=== PATIENT | male | born 1950 | race Caucasian/White ===

== ENCOUNTER → 2020-11-15 07:12 | Outpatient (CLI) | payer MEDICARE, OTHER, SELFPAY ==
--- NOTE | ~2020-11-15 | XR_ITS ---
EXAMINATION: XR wrist RT 2V DATE: 11/15/2020 08:21 INDICATION: Rheumatoid arthritis at multiple sites without rheumatoid factor. TECHNIQUE: 2 views of right wrist were obtained. COMPARISON: None. FINDINGS: Bone alignment is normal. No fracture. There is mild osteoarthritis of distal radioulnar salomon int and the radiocarpal joints and triscaphe joint. There is severe osteoarthritis of lunate-capitate joint with subchondral cyst in lunate. There is moderate osteoarthritis of first carpometacarpal lucas nt. There is mild to moderate osteoarthritis of all the metacarpophalangeal joints. IMPRESSION: 1. Polyarticular osteoarthritis. No evidence of inflammatory arthropathy such as rheumatoid arthritis . Reviewed, dictated and finalized at location A. SAWING MACHINE OPERATOR IMPRESSION: 1. Polyarticular osteoarthritis. No evidence of inflammatory arthropathy such a s rheumatoid arthritis.
--- NOTE | ~2020-11-15 | XR_ITS ---
EXAMINATION: XR hand LT 2V DATE: 11/15/2020 08:21 INDICATION: Rheumatoid arthritis of multiple sites without rheumatoid factor. TECHNIQUE: 2 views of left hand were obtained. COMPARISON: None. FINDINGS: Bone alignment is normal. No fracture. There is mild osteoarthritis of distal radioulnar salomon int and triscaphe joint. There is severe osteoarthritis of lunate-capitate joint and moderate osteoar thritis of first carpometacarpal joint. There is moderate osteoarthritis of second and third metacarp ophalangeal joints and mild osteoarthritis of first metacarpophalangeal joint. There is mild osteoart hritis of first interphalangeal joint and second-fourth proximal and distal interphalangeal joints. T here are loose bodies palmar to the carpus on the lateral view. IMPRESSION: 1. Polyarticular osteoarthritis. No evidence of inflammatory arthropathy such as rheumatoid arthritis . Reviewed, dictated and finalized at location A. OR CIRCULAR GLASS CUTTER IMPRESSION: 1. Polyarticular osteoarthritis. No evidence of inflammatory arthropathy such a s rheumatoid arthritis.
--- NOTE | ~2020-11-15 | MR_ITS ---
EXAMINATION: MR wrist RT wo con DATE: 11/15/2020 08:02 INDICATION: Rheumatoid arthritis of multiple sites without rheumatoid factor. TECHNIQUE: Magnetic resonance imaging (MRI) of the wrist was performed without intravenous contrast. Sequences performed include coronal T1-weighted FSE, coronal PD-weighted FS FSE, axial PD-weighted FS FSE, axial PD-weighted FSE, sagittal PD-weighted FSE, and sagittal PD-weighted FS FSE. COMPARISON: Right wrist radiographs 11/15/2020 FINDINGS: Intrinsic ligaments: There are partial tears of scapholunate ligament and lunotriquetral ligament. Triangular fibrocartilage complex (TFCC): There is a full-thickness tear of triangular fibrocartilage. Extensor wrist: The extensor tendons are normal. There is mild tenosynovitis of extensor carpi ulnaris. Flexor wrist: The flexor tendons are normal. Median nerve demonstrates increased PD-weighted signal intensity. Guyon's canal: Ulnar nerve is normal. Bones/other: There is palmar tilt of lunate, consistent with volar intercalated segmental instability (VISI). Ther e is full-thickness cartilage loss of lunate-capitate joint with 10 mm subchondral cyst in lunate and edema-like marrow signal intensity in lunate. There is full-thickness cartilage loss of first carpom etacarpal joint with small subchondral cysts, osteophytes, and mild subchondral edema-like signal int ensity. There is partial-thickness cartilage loss of radioscaphoid joint and triscaphe joint with sub chondral edema-like marrow signal intensity. Lunate is type II. There is subchondral edema-like marro w signal intensity in proximal hamate. There is a 10 mm cyst in proximal second metacarpal, likely a subchondral cyst. There is edema-like marrow signal intensity in the ulnar styloid. There is a 7 mm m ultiloculated ganglion cyst adjacent to ulnar styloid. There is a 9 mm multiloculated ganglion cyst a djacent to first carpometacarpal joint. There is a skin marker dorsal to the lunate and distal radius . IMPRESSION: 1. Polyarticular osteoarthritis. No evidence of inflammatory arthropathy such as rheumatoid arthritis . 2. Volar intercalated segmental instability (VISI). 3. Partial tears of scapholunate ligament and lunotriquetral ligament. 4. Full-thickness tear of triangular fibrocartilage. 5. Increased T2-weighted signal intensity in median nerve, consistent with neuropathy. 6. Ganglion cysts adjacent to ulnar styloid and first carpometacarpal joint. Reviewed, dictated and finalized at location A. N DRIVER SALESPERSON IMPRESSION: 1. Polyarticular osteoarthritis. No evidence of inflammatory arthropathy such a s rheumatoid arthritis. 2. Volar intercalated segmental instability (VISI). 3. Partial tears of scapholunate ligament and lunotriquetral ligament. 4. Full-thickness tear of triangular fibrocartilage. 5. Increased T2-weighted signal intensity in median nerve, consistent with neur opathy. 6. Ganglion cysts adjacent to ulnar styloid and first carpometacarpal joint.
--- NOTE | ~2020-11-15 | XR_ITS ---
EXAMINATION: XR hand RT 2V DATE: 11/15/2020 08:21 INDICATION: Rheumatoid arthritis of multiple sites without rheumatoid factor. TECHNIQUE: 2 views of right hand were obtained. COMPARISON: None. FINDINGS: Bone alignment is normal. No fracture. There is mild osteoarthritis of distal radioulnar salomon int, the radiocarpal joints, and triscaphe joint. There is severe osteoarthritis of lunate-capitate j oint with subchondral cyst in lunate. There is moderate osteoarthritis of first carpometacarpal joint . There is moderate osteoarthritis of second and third metacarpophalangeal joints and mild osteoarthr itis of first, fourth, and fifth metacarpophalangeal joints. There is moderate osteoarthritis of se[place] distal interphalangeal joint and mild osteoarthritis of third and fourth proximal and distal inter phalangeal joints and fifth distal interphalangeal joint. IMPRESSION: 1. Polyarticular osteoarthritis. No evidence of inflammatory arthropathy such as rheumatoid arthritis . Reviewed, dictated and finalized at location A. O PHOTOGRAPHER IMPRESSION: 1. Polyarticular osteoarthritis. No evidence of inflammatory arthropathy such a s rheumatoid arthritis.
== END ==
DX: M06.09 Rheumatoid arthritis without rheumatoid factor, multiple sites (principal); M25.531 Pain in right wrist; M21.831 Other specified acquired deformities of right forearm; S63.591A Other specified sprain of right wrist, initial encounter; M67.431 Ganglion, right wrist; M19.042 Primary osteoarthritis, left hand
CPT/HCPCS: 73100; 73120; 73221

== ENCOUNTER → 2021-03-17 00:54 | Outpatient (CLI) | payer MEDICARE, OTHER, SELFPAY ==
[2021-03-17 23:32] LABS: SARS-CoV-2 RNA PCR Negative
== END ==
PROVIDERS: PCP Nurse Practitioner Family; Visit Provider Internal Medicine Gastroenterology
DX: Z01.812 Encounter for preprocedural laboratory examination (principal); Z20.822 Contact with and (suspected) exposure to COVID-19
CPT/HCPCS: C9803; U0003; U0005

== ENCOUNTER 2021-03-20 01:42 | Day surgery (SDC) | payer MEDICARE, OTHER, SELFPAY ==
[2021-03-06 15:03] VITALS: BMI 25.4
[2021-03-20 06:25] VITALS: BP 171/76; PULSE 71; RESP 16; TEMP 36.6; O2SAT 99; BMI 25.1
[2021-03-20] MEDS: LACTATED RINGERS 1,000 ML 150 ML IV CONT (06:37)
--- NOTE | 2021-03-20 06:55 | WPDANESEPPF ---
Anes - Initial Pre Proc Eval Procedure: Operation Date: 03/20/21 07:30 Proposed Procedures p Screening Colonoscopy - Yousuf Oscar MD Date/Time: 03/20/21 06:55 Surgeon: Yousuf Oscar MD Pre Op Diagnosis: neoplasm screening Patient Data Age: 70 Gender: M Height: 1.83 m Weight: 84 kg Last Vital Signs Temp 36.6 C 03/20/21 06:25 Pulse 71 03/20/21 06:25 Resp 16 03/20/21 06:25 BP 171/76 H 03/20/21 06:25 Pulse Ox 99 03/20/21 06:25 Allergies Allergy/AdvReac Type Severity Reaction Status Date / Time No Known Allergies Allergy Verified 03/20/21 06:23 Home Medications Medication Instructions Recorded Confirmed Type atorvastatin 10 mg PO DAILY 03/06/21 03/20/21 History folic acid 1 mg PO DAILY 03/06/21 03/20/21 History losartan 25 mg PO DAILY 03/06/21 03/20/21 History methotrexate sodium 2.5 mg PO DAILY 03/06/21 03/20/21 History nebivolol [Bystolic] 10 mg PO DAILY 03/06/21 03/20/21 History sodium bicarbonate 650 mg PO BID 03/06/21 03/20/21 History Patient hx anesthesia problems: none Family hx anesthesia problems: none [facility] Past Medical History Medical History (Updated 03/19/21 @ 08:29 by Roscoe Juarez DO) Hypertension Irregular heart beat Social History Social History Smoking packs per day: 1.5 Smoking cigarettes per day: 30.0 Years smoked: 15 Smoking pack-years: 22.50 Smoking status: Former smoker Tobacco type: cigarettes Alcohol intake: current Drinks per week: 28 Alcohol use details: BEER Substance use: never Substance use type: does not use Living arrangements: with family Spiritual care concerns: No Anes - Eval Final PreProcedure Day of Procedure 03/20/21 06:55 Patient weight: overweight Heart: regular rate and rhythm Lungs: clear to auscultation and normal air movement Airway: Mallampati scale class II Neurological: alert and oriented Last oral intake: >/= 8 hours ASA classification: III Emergent: no Anesthetic plan: proceed Anesthesia type and monitoring: general GIVS and standard monitoring Informed Consent: The patient's anesthetic plan and its attendant risks and benefits were discussed with the patient/family/POA. Questions were solicited and answers provided to the satisfaction of the patient/family/POA.
--- NOTE | 2021-03-20 06:58 | P.HP_ITS ---
History of Present Illness History of Present Illness Consent: Risks, benefits, and alternatives have been discussed and questions answered. Patient agrees to proceed with procedure. Chief complaint: neoplasm screening Narrative: Gary Doyle Jr. is a 70 year old male Referred for colon cancer screening Review of Systems Review of Systems: All systems reviewed & are unremarkable except as noted in HPI and below Musculoskeletal: Comments: he is treated for rheumatoid arthritis [facility] Past Medical History Medical History Hypertension Irregular heart beat Social History Social History Smoking packs per day: 1.5 Smoking cigarettes per day: 30.0 Years smoked: 15 Smoking pack-years: 22.50 Smoking status: Former smoker Tobacco type: cigarettes Alcohol intake: current Drinks per week: 28 Alcohol use details: BEER Substance use: never Substance use type: does not use Living arrangements: with family Spiritual care concerns: No Meds Home Medications and Allergies Home Medications Medication Instructions Recorded Confirmed Type atorvastatin 10 mg PO DAILY 03/06/21 03/20/21 History folic acid 1 mg PO DAILY 03/06/21 03/20/21 History losartan 25 mg PO DAILY 03/06/21 03/20/21 History methotrexate sodium 2.5 mg PO DAILY 03/06/21 03/20/21 History nebivolol [Bystolic] 10 mg PO DAILY 03/06/21 03/20/21 History sodium bicarbonate 650 mg PO BID 03/06/21 03/20/21 History Allergies Allergy/AdvReac Type Severity Reaction Status Date / Time No Known Allergies Allergy Verified 03/20/21 06:23 Vital Signs Vital Signs - 24 hr 03/20/21 06:25 Temperature 36.6 C Pulse Rate 71 Respiratory Rate 16 Blood Pressure 171/76 H Pulse Oximetry 99 Exam Resp: Auscultation: clear to auscultation bilaterally Cardio: Rate: regular rate Rhythm: regular rhythm GI: GI Palp: Yes Soft to palpation and No Tenderness to palpation present (GI) Assessment and Plan Assessment and plan (1) Colon cancer screening: Code(s): Z12.11 - Encounter for screening for malignant neoplasm of colon Status: Acute Assessment and Plan: Colonoscopy with possible biopsy or polypectomy or cautery or injection of substances.
[2021-03-20 07:42] VITALS: BP 119/72; PULSE 69; RESP 18; O2SAT 99
[2021-03-20 07:52] VITALS: BP 153/88; PULSE 64; RESP 13; O2SAT 100
[2021-03-20 08:02] VITALS: BP 157/97; PULSE 70; RESP 19; O2SAT 100
== END 2021-03-20 08:08 | disposition home or self-care (01) ==
PROVIDERS: PCP Nurse Practitioner Family; Visit Provider Internal Medicine Gastroenterology
PROC: 0DJD8ZZ Inspection of Lower Intestinal Tract, Via Natural or Artificial Opening Endoscopic (ICD-10-PCS; CPT 45378; principal; 2021-03-20 07:30)
DX: Z12.11 Encounter for screening for malignant neoplasm of colon (principal); K64.8 Other hemorrhoids; K57.30 Diverticulosis of large intestine without perforation or abscess without bleeding; Z86.010 Personal history of colon polyps; I10 Essential (primary) hypertension; Z87.891 Personal history of nicotine dependence
CPT/HCPCS: G0105; J2704; J7120

== ENCOUNTER 2022-09-04 10:31 | Day surgery (SDC) | payer MEDICARE, OTHER, SELFPAY ==
[2022-08-27 14:35] VITALS: BMI 26.3
[2022-09-04 10:55] VITALS: BP 185/83; PULSE 65; RESP 20; TEMP 36.8; O2SAT 98
[2022-09-04] MEDS: TETRACAINE HCL 0.5% OPHTH SOLN 4 ML BTL 1 DROP AFFCTD EYE ×3 (11:19→11:29)
[2022-09-04] MEDS: OFLOXACIN 0.3% OPHTH SOLN 5 ML BTL 1 DROP AFFCTD EYE (11:19)
--- NOTE | 2022-09-04 11:35 | WPDANESEPPF ---
Anes - Initial Pre Proc Eval Procedure: Operation Date: 09/04/22 11:30 Proposed Procedures p Cataract Extraction with Lens Implant-Left Eye - Lennox Carney MD Date/Time: 09/04/22 11:35 Surgeon: Lennox Carney MD Pre Op Diagnosis: Cataract Left Eye Patient Data Age: 71 Gender: M Height: 1.83 m Weight: 88 kg Last Vital Signs Temp 36.8 C 09/04/22 10:55 Pulse 65 09/04/22 10:55 Resp 20 09/04/22 10:55 BP 185/83 H 09/04/22 10:55 Pulse Ox 98 09/04/22 10:55 O2 Del Method Room Air 09/04/22 10:55 Allergies Allergy/AdvReac Type Severity Reaction Status Date / Time No Known Allergies Allergy Verified 09/04/22 11:01 Home Medications Medication Instructions Recorded Confirmed Type atorvastatin 10 mg tablet 10 mg PO DAILY 03/06/21 09/04/22 History folic acid 1 mg tablet 2 mg PO DAILY 03/06/21 09/04/22 History losartan 25 mg tablet 25 mg PO DAILY 03/06/21 09/04/22 History methotrexate sodium 2.5 mg tablet 20 mg PO WEEKLY 03/06/21 09/04/22 History sodium bicarbonate 650 mg tablet 1,300 mg PO BID 03/06/21 09/04/22 History diltiazem HCl 120 mg capsule,24 120 mg PO DAILY 08/27/22 09/04/22 History hr,extended release metoprolol succinate 100 mg 100 mg PO DAILY 08/27/22 09/04/22 History tablet,extended release 24 hr Patient hx anesthesia problems: none Family hx anesthesia problems: none Results Review: All pre-operative results and documents have been reviewed as part of the pre-operative evaluation. [facility] Past Medical History Medical History Hyperlipidemia Hypertension Irregular heart beat Rheumatoid arthritis Social History Social History Smoking packs per day: 1.5 Smoking cigarettes per day: 30.0 Years smoked: 15 Smoking pack-years: 22.50 Smoking status: Former smoker Tobacco type: cigarettes Alcohol intake: current Drinks per week: 28 Alcohol use details: BEER Substance use: never Substance use type: does not use Living arrangements: with family Spiritual care concerns: No Anes - Eval Final PreProcedure Day of Procedure 09/04/22 11:35 Patient weight: overweight Heart: regular rate and rhythm Lungs: clear to auscultation Airway: Mallampati scale class II Neurological: alert and oriented Last oral intake: >/= 8 hours ASA classification: III Emergent: no Anesthetic plan: proceed Anesthesia type and monitoring: monitored anesthesia care and standard monitoring Results Review: All pre-operative results and documents have been reviewed as part of the pre-operative evaluation. Informed Consent: The patient's anesthetic plan and its attendant risks and benefits were discussed with the patient/family/POA. Questions were solicited and answers provided to the satisfaction of the patient/family/POA.
[2022-09-04] MEDS: LIDOCAINE HCL 2% JELLY 5 ML TUBE 1 APPLIC AFFCTD EYE (12:00)
--- NOTE | 2022-09-04 12:01 | WPDHPUPDATE1 ---
History and Physical Update Update Date/Time: 09/04/22 12:01 History and Physical has been reviewed, including an updated exam of the patient. There are NO changes in the patient's condition. Risks, benefits, and alternatives have been discussed and questions answered. Patient agrees to proceed with procedure.
[2022-09-04 12:23] VITALS: BP 147/77; PULSE 56; RESP 16; O2SAT 96
--- NOTE | 2022-09-04 12:26 | W.PM.PROC2 ---
Procedure Note - Detailed Date of Procedure 09/04/22 Pre-op Diagnosis Cataract Left Eye Post-op Diagnosis Same Procedure Performed Cataract Extraction (by Phacoemulsification) and lntraocular Lens Implant Surgeon Lennox Carney MD Description of Procedure The eye was anesthetized with topical 0.75% bupivacaine. After intravenous sedation and placement of monitors, the patient was prepped and draped in the usual sterile manner. A lid speculum was placed. A paracentesis was made, and preservative free 1% lidocaine was instilled in the anterior chamber. The anterior chamber was then filled with Viscoat viscoelastic. A graciela keratome was used to create the wound. Continuous tear anterior capsulotomy was performed. The lens was hydro dissected before being removed with phacoemulsification. The remaining lenticular cortex was removed with aspiration. The capsular bag was polished and filled with viscoelastic material. An intraocular lens was chosen, inspected, irrigated and placed within the capsular bag where it was seen to be centered and stable. The viscoelastic material was aspirated. The wound was closed and found to be watertight. Ciloxan drops were placed in the eye. The speculum was removed. A Shepherd shield was applied. The patient tolerated the procedure well and left the operating room in satisfactory condition. Implants See chart Complications None Condition Stable Disposition Same day
[2022-09-04] MEDS: acetaZOLAMIDE TAB 250 MG TABLET PO (12:35)
--- NOTE | 2022-09-04 12:42 | WPDANESPN ---
Anes - Prog Note Post-Op Date/Time: 09/04/22 12:42 Cardiovascular status: normal Respiratory status: normal Airway patency: baseline Mental status: baseline Post-Op hydration status: normal Vital Signs: Last Vital Signs Temp 36.8 C 09/04/22 10:55 Pulse 56 L 09/04/22 12:23 Resp 16 09/04/22 12:23 BP 147/77 H 09/04/22 12:23 Pulse Ox 96 09/04/22 12:23 O2 Del Method Room Air 09/04/22 12:23 Pain Score (VAS): 0 Patient Feedback: Patient satisfied with anesthetic care.
== END 2022-09-04 12:47 | disposition home or self-care (01) ==
PROVIDERS: PCP Nurse Practitioner Family; Visit Provider Student in an Organized Health Care Education/Training Program
PROC: (CPT 66983; principal; 2022-09-04 11:30)
DX: H25.12 Age-related nuclear cataract, left eye (principal)
CPT/HCPCS: 66984

== ENCOUNTER 2022-10-02 08:46 | Day surgery (SDC) | payer MEDICARE, OTHER, SELFPAY ==
[2022-09-24 10:11] VITALS: BMI 25.4
--- NOTE | 2022-10-02 09:03 | WPDHPUPDATE1 ---
History and Physical Update Update Date/Time: 10/02/22 09:03 History and Physical has been reviewed, including an updated exam of the patient. There are NO changes in the patient's condition. Risks, benefits, and alternatives have been discussed and questions answered. Patient agrees to proceed with procedure.
--- NOTE | 2022-10-02 09:56 | WPDANESEPPF ---
Anes - Initial Pre Proc Eval Procedure: Operation Date: 10/02/22 11:00 Proposed Procedures p Cataract Extraction with Lens Implant-Right Eye - Lennox Carnye MD Date/Time: 10/02/22 09:56 Surgeon: Lennox Carney MD Pre Op Diagnosis: Cataract Right Eye Patient Data Age: 71 Gender: M Height: 1.83 m Weight: 85 kg Allergies Allergy/AdvReac Type Severity Reaction Status Date / Time No Known Allergies Allergy Verified 09/04/22 11:01 Home Medications Medication Instructions Recorded Confirmed Type atorvastatin 10 mg tablet 10 mg PO DAILY 03/06/21 09/24/22 History folic acid 1 mg tablet 2 mg PO DAILY 03/06/21 09/24/22 History losartan 25 mg tablet 25 mg PO DAILY 03/06/21 09/24/22 History methotrexate sodium 2.5 mg tablet 20 mg PO WEEKLY 03/06/21 09/24/22 History sodium bicarbonate 650 mg tablet 1,300 mg PO BID 03/06/21 09/24/22 History diltiazem HCl 120 mg capsule,24 120 mg PO DAILY 08/27/22 09/24/22 History hr,extended release metoprolol succinate 100 mg 100 mg PO DAILY 08/27/22 09/24/22 History tablet,extended release 24 hr upadacitinib 15 mg tablet,extended 15 mg PO DAILY 09/24/22 09/24/22 History release 24 hr (Rinvoq) Patient hx anesthesia problems: none Family hx anesthesia problems: none Results Review: All pre-operative results and documents have been reviewed as part of the pre-operative evaluation. [facility] Past Medical History Medical History Hyperlipidemia Hypertension Irregular heart beat Rheumatoid arthritis Social History Social History Smoking packs per day: 1.5 Smoking cigarettes per day: 30.0 Years smoked: 15 Smoking pack-years: 22.50 Smoking status: Former smoker Tobacco type: cigarettes Alcohol intake: current Drinks per week: 28 Alcohol use details: BEER Substance use: never Substance use type: does not use Living arrangements: with family Spiritual care concerns: No Anes - Eval Final PreProcedure Day of Procedure 10/02/22 09:56 Patient weight: normal Heart: regular rate and rhythm Lungs: decreased breath sounds Airway: Mallampati scale class II Neurological: other (alert) Last oral intake: >/= 8 hours ASA classification: III Emergent: no Anesthetic plan: proceed Anesthesia type and monitoring: monitored anesthesia care Results Review: All pre-operative results and documents have been reviewed as part of the pre-operative evaluation. Informed Consent: The patient's anesthetic plan and its attendant risks and benefits were discussed with the patient/family/POA. Questions were solicited and answers provided to the satisfaction of the patient/family/POA.
[2022-10-02] MEDS: TETRACAINE HCL 0.5% OPHTH SOLN 4 ML BTL 1 DROP AFFCTD EYE ×3 (10:10→10:20)
[2022-10-02] MEDS: OFLOXACIN 0.3% OPHTH SOLN 5 ML BTL 1 DROP AFFCTD EYE ×2 (10:10→11:48)
[2022-10-02] MEDS: LIDOCAINE HCL 2% JELLY 5 ML TUBE 1 APPLIC AFFCTD EYE (11:28)
[2022-10-02] MEDS: LIDOCAINE HCL 1% PF INJ 5 ML VIAL 1 ML INTRAOCULA (11:35)
[2022-10-02] MEDS: HOME MEDICATION 1 EACH AFFCTD EYE (11:48)
[2022-10-02 11:51] VITALS: BP 166/73; PULSE 64; RESP 16; O2SAT 99
[2022-10-02] MEDS: acetaZOLAMIDE TAB 250 MG TABLET PO (11:56)
--- NOTE | 2022-10-02 11:56 | WPDANESPN ---
Anes - Prog Note Post-Op Date/Time: 10/02/22 11:56 Cardiovascular status: normal Respiratory status: normal Airway patency: baseline Mental status: baseline Post-Op hydration status: normal Pain Score (VAS): 0 Patient Feedback: Patient satisfied with anesthetic care.
--- NOTE | 2022-10-02 11:58 | W.PM.PROC2 ---
Procedure Note - Detailed Date of Procedure 10/02/22 Pre-op Diagnosis Cataract Right Eye Post-op Diagnosis Same Procedure Performed Cataract Extraction (by Phacoemulsification) and lntraocular Lens Implant Surgeon Lennox Carney MD Anesthesia MAC Description of Procedure The eye was anesthetized with topical 0.75% bupivacaine. After intravenous sedation and placement of monitors, the patient was prepped and draped in the usual sterile manner. A lid speculum was placed. A paracentesis was made, and preservative free 1% lidocaine was instilled in the anterior chamber. The anterior chamber was then filled with Viscoat viscoelastic. A graciela keratome was used to create the wound. Continuous tear anterior capsulotomy was performed. The lens was hydro dissected before being removed with phacoemulsification. The remaining lenticular cortex was removed with aspiration. The capsular bag was polished and filled with viscoelastic material. An intraocular lens was chosen, inspected, irrigated and placed within the capsular bag where it was seen to be centered and stable. The viscoelastic material was aspirated. The wound was closed and found to be watertight. Ciloxan drops were placed in the eye. The speculum was removed. A Shepherd shield was applied. The patient tolerated the procedure well and left the operating room in satisfactory condition. Implants See chart Complications None Condition Stable Disposition Same day
== END 2022-10-02 12:03 | disposition home or self-care (01) ==
PROVIDERS: PCP Nurse Practitioner Family; Visit Provider Student in an Organized Health Care Education/Training Program
PROC: (CPT 66983; principal; 2022-10-02 11:00)
DX: H25.11 Age-related nuclear cataract, right eye (principal)
CPT/HCPCS: 66984

== ENCOUNTER 2024-02-26 10:06 | Outpatient (CLI) | payer MEDICARE, OTHER, SELFPAY ==
--- NOTE | ~2024-02-26 | CT_ITS ---
Non-contrast Head CT History: Hyponatremia Technique: Axial non-contrast imaging of the brain was performed. Dose reduction technique was used on this scan by utilizing automated exposure control and iterative reconstruction technique. The dose -length product (DLP) was 605.33 mGy-cm. Findings: There is no evidence of intracranial hemorrhage, mass lesion, or acute infarct. Brain par enchyma appears normal. The ventricles and subarachnoid spaces are normal in size. The calvarium ap pears normal. The visualized paranasal sinuses and mastoid air cells are clear. Impression: No significant abnormality seen. Reviewed, dictated and finalized at location . Impression: No significant abnormality seen.
== END 2024-02-26 10:07 | disposition home or self-care (01) ==
PROVIDERS: Visit Provider Internal Medicine Nephrology
DX: E87.1 Hypo-osmolality and hyponatremia (principal); R51.9 Headache, unspecified
CPT/HCPCS: 70450